=== PATIENT | male | born 1975 | race Caucasian/White ===

== ENCOUNTER 2016-12-11 19:12 | Emergency (ER) | payer BC ==
[~2016-12-11] VITALS: Ht 180.3 cm; Wt 74.8 kg
== END 2016-12-11 21:25 | disposition home or self-care (01) ==
LOC: ED 19:12
DX: S61.511A Laceration without foreign body of right wrist, initial encounter (principal); W45.8XXA Other foreign body or object entering through skin, initial encounter; Y93.89 Activity, other specified; Y92.89 Other specified places as the place of occurrence of the external cause; Y99.8 Other external cause status